=== PATIENT | female | born 1935 ===

== ENCOUNTER 2017-02-13 04:59 | Emergency (ER) | payer MEDICARE ==
[2017-02-13 05:00] VITALS: BMI 21.5
[2017-02-13 05:16] VITALS: RESP 16
--- NOTE | 2017-02-13 05:44 | C.PDOC ---
History Of Present Illness Pt c/o productive cough., Pt is on zithromax. No f/c/n/v. Speaking in complete sentences Time Seen by Provider: 02/13/17 05:43 Chief Complaint (Nursing): Cough, Cold, Congestion History Per: Patient, Family History/Exam Limitations: no limitations Onset/Duration Of Symptoms: Days Current Symptoms Are (Timing): Still Present Initiating Event: Upper Respiratory Illness Quality: Dull Exacerbating Factor(s): Coughing Current Respiratory Medications: See Home Med List Severity: Moderate Pain Scale Rating Of: 4 Associated Symptoms: denies: Fever, Chills Reports Recently: Seen In ED, Treated By A Physician Recent travel outside of the [place]: No Additional History Per: Family Past Medical History Reviewed: Historical Data, Nursing Documentation, Vital Signs Vital Signs: Last Vital Signs Temp 97.5 F L 02/13/17 05:13 Pulse 66 02/13/17 05:13 Resp 16 02/13/17 05:13 BP 160/63 H 02/13/17 05:13 Pulse Ox 97 02/13/17 06:15 - Medical History PMH: Diabetes, HTN, Hypercholesterolemia, Hypothyroidism Denies: Chronic Kidney Disease Surgical History: Cholecystectomy - [facility] Procedures DILATE OF L COM ILIAC VEIN WITH INTRALUM DEV, PERC APPROACH (08/03/16) DILATION OF L FEMOR VEIN WITH INTRALUM DEV, PERC APPROACH (08/03/16) EXTIRPATION OF MATTER FROM L COM ILIAC VEIN, PERC APPROACH (08/03/16) EXTIRPATION OF MATTER FROM LEFT FEMORAL VEIN, PERC APPROACH (08/03/16) NASAL LACERATION SUTURE (06/05/14) TETANUS TOXOID ADMINIST (06/05/14) Family History: States: No Known Family Hx - Social History Hx Tobacco Use: No Hx Alcohol Use: No Hx Substance Use: No - Immunization History Hx Tetanus Toxoid Vaccination: Yes Hx Influenza Vaccination: Yes Hx Pneumococcal Vaccination: Yes Review Of Systems Constitutional: Negative for: Fever, Chills Eyes: Negative for: Redness ENT: Negative for: Throat Pain Cardiovascular: Negative for: Chest Pain, Palpitations Respiratory: Positive for: Cough, Shortness of Breath Gastrointestinal: Negative for: Nausea, Vomiting, Abdominal Pain Genitourinary: Negative for: Dysuria Musculoskeletal: Negative for: Back Pain Skin: Negative for: Rash Neurological: Negative for: Weakness Psych: Negative for: Anxiety Physical Exam - Physical Exam Appears: Non-toxic, No Acute Distress Skin: Warm, Dry Head: Atraumatic Eye(s): bilateral: Normal Inspection Oral Mucosa: Moist Neck: Supple Chest: Symmetrical Cardiovascular: Rhythm Regular Respiratory: Decreased Breath Sounds, No Rales, Rhonchi, No Wheezing Gastrointestinal/Abdominal: Soft, No Tenderness, No Distention Back: No CVA Tenderness Extremity: Normal ROM Extremity: Bilateral: Atraumatic Neurological/Psych: Oriented x3, Normal Speech, Normal Cognition Gait: Steady ED Course And Treatment - Laboratory Results Result Diagrams: 02/13/17 06:26 02/13/17 06:26 O2 Sat by Pulse Oximetry: 97 Pulse Ox Interpretation: Normal - Radiology CXR: Interpreted by Me, Viewed By Me CXR Interpretation: No: Infiltrates, Fracture, Pnemothorax Reevaluation Time: 06:50 Reassessment Condition: Improved Disposition Counseled Patient/Family Regarding: Studies Performed, Diagnosis, Need For Followup, Rx Given - Disposition Referrals: Mg Catalan MD [Staff Provider] - Disposition: HOME/ ROUTINE Disposition Time: 05:44 Condition: FAIR Prescriptions: Albuterol 0.083% [Albuterol Sulfate 3 Ml] 3 ml IH QID PRN #50 neb PRN Reason: cough Instructions: Upper Respiratory Infection (ED) Forms: [facility] (Croatian) Print Language: VIETNAMESE - Clinical Impression Clinical Impression: Upper respiratory infection, Bronchitis, Bronchitis Physician Patient Turnover Patient Signed Over To: Jessie Tong Handoff Comments: pending labs and dispo
[2017-02-13] MEDS: Albuterol-Ipratrop 3 mg / 0.5 (3 ml) UD IH SCH ×2 (06:00→06:38)
[2017-02-13 06:29] LABS: BASO % 0.8 % (0.0-2.0); EOS # 0.1 K/uL (0.0-0.7); HEMOGLOBIN 11.5 g/dL (11.0-16.0); LYMPH # 1.1 K/uL (1.0-4.3); LYMPH % 19.4 % (20.0-40.0); MEAN CELL VOLUME 93.2 fL (81.0-99.0); MEAN CORPUSCULAR HGB CONC 34.4 g/dL (33.0-37.0); MEAN PLATELET VOLUME 8.7 fL (7.2-11.7); MONO # 0.4 K/uL (0.0-0.8); MONO % 7.2 % (0.0-10.0); NEUT # 3.9 K/uL (1.8-7.0); NEUT % 71.6 % (50.0-75.0); RBC 3.6 Mil/uL (3.80-5.20); RED CELL DISTRIBUTION WIDTH 13.3 % (11.5-14.5); WHITE BLOOD COUNT 5.5 K/uL (4.8-10.8)
[2017-02-13 06:32] LABS: URINE BILIRUBIN NEGATIVE (NEGATIVE); URINE BLOOD NEGATIVE (NEGATIVE); URINE CLARITY Clear (Clear); URINE COLOR Straw (YELLOW); URINE GLUCOSE (UA) NORMAL (Normal); URINE LEUKOCYTE ESTERASE NEG Leu/uL (Negative); URINE NITRATE NEGATIVE (NEGATIVE); URINE PROTEIN 1+ mg/dL (NEGATIVE); URINE UROBILINOGEN NORMAL mg/dL (0.2-1.0)
[2017-02-13] MEDS ORDERED: Albuterol-Ipratrop 3 mg / 0.5 (3 ml) UD ONE (06:33)
[2017-02-13 06:37] LABS: ALBUMIN 4.4 g/dL (3.5-5.0)
[2017-02-13 06:40] LABS: ALB/GLOB RATIO 1.4 (1.0-2.1)
[2017-02-13 06:44] LABS: VENOUS BLOOD GAS BASE EXCESS 2.2 mmol/L (0.0-2.0); VENOUS BLOOD GAS PCO2 49 mmHg (40-60); VENOUS BLOOD GAS PO2 22 mm/Hg (30-55); VENOUS BLOOD PH 7.37 (7.32-7.43)
[2017-02-13 07:07] VITALS: BP 151/57; PULSE 69; TEMP 98; O2SAT 99
--- NOTE | 2017-02-13 09:23 | RAD ---
HISTORY: r/o infiltrate COMPARISON: No prior. TECHNIQUE: Chest PA and lateral FINDINGS: LUNGS: No active pulmonary disease. PLEURA: No significant pleural effusion identified. No pneumothorax apparent. CARDIOVASCULAR: Normal. OSSEOUS STRUCTURES: No significant abnormalities. VISUALIZED UPPER ABDOMEN: Normal. OTHER FINDINGS: None. IMPRESSION: No active disease.
== END 2017-02-13 07:05 | disposition home or self-care (01) ==
LOC: C.ER 04:59
DX: J06.9 Acute upper respiratory infection, unspecified (principal); J40 Bronchitis, not specified as acute or chronic

== ENCOUNTER 2017-04-28 18:26 | Emergency (ER) | payer MEDICARE ==
[2017-04-28 18:26] VITALS: BMI 21.5
[2017-04-28 18:39] VITALS: RESP 18; TEMP 97.9
--- NOTE | 2017-04-28 19:51 | C.PDOC ---
History Of Present Illness 81 yr old female presents to the ER for evaluation of left knee contusion/ swelling gradually developing for the past 4 days. Patient reports sustained mechanical fall and landed on her left knee. Patient admits, was ambulatory since accident and denies head injury, LOC, syncope, dizziness, neck pain, CP, SOB, dyspnea, diaphoresis, palpitation, denies obvious deformity to Left knee, weakness, sensory or vascular deficits to B/L LEs. Ambulate to ED for evaluation , not in any apparent distress. Time Seen by Provider: 04/28/17 18:41 Chief Complaint (Nursing): Lower Extremity Problem/Injury History Per: Patient History/Exam Limitations: no limitations Onset/Duration Of Symptoms: Gradual Past Medical History Reviewed: Historical Data, Nursing Documentation, Vital Signs Vital Signs: Last Vital Signs Temp 97.9 F 04/28/17 18:36 Pulse 65 04/28/17 20:29 Resp 18 04/28/17 20:29 BP 156/92 H 04/28/17 20:29 Pulse Ox 97 04/28/17 20:29 - Medical History PMH: Diabetes, HTN, Hypercholesterolemia, Hypothyroidism Surgical History: Cholecystectomy - [facility] Procedures DILATE OF L COM ILIAC VEIN WITH INTRALUM DEV, PERC APPROACH (08/03/16) DILATION OF L FEMOR VEIN WITH INTRALUM DEV, PERC APPROACH (08/03/16) EXTIRPATION OF MATTER FROM L COM ILIAC VEIN, PERC APPROACH (08/03/16) EXTIRPATION OF MATTER FROM LEFT FEMORAL VEIN, PERC APPROACH (08/03/16) NASAL LACERATION SUTURE (06/05/14) TETANUS TOXOID ADMINIST (06/05/14) Family History: States: No Known Family Hx - Social History Hx Tobacco Use: No Hx Alcohol Use: No Hx Substance Use: No - Immunization History Hx Tetanus Toxoid Vaccination: Yes Hx Influenza Vaccination: Yes Hx Pneumococcal Vaccination: Yes Review Of Systems Except As Marked, All Systems Reviewed And Found Negative. Musculoskeletal: Positive for: Other ((+) Left knee contusion and swelling). Negative for: Leg Pain, Foot Pain Neurological: Negative for: Weakness, Numbness Physical Exam - Physical Exam Appears: Non-toxic, No Acute Distress Skin: Warm, Dry Head: Atraumatic, Normacephalic Neck: Trachea Midline, No Midline Cervical Tenderness, No Paracervical Tenderness, No Step Off Deformity, Supple Chest: Symmetrical, No Tenderness Back: No Normal Inspection, No Vertebral Tenderness, No Paraspinal Tenderness Extremity: Normal ROM, Tenderness, No Calf Tenderness, No Deformity, Other ( Left Knee: Small hematoma over the left patella with superficial abrasion. FAROM , no neurovascular deficits.) Pulses: Left Dorsalis Pedis: Normal, Right Dorsalis Pedis: Normal Neurological/Psych: Oriented x3, Normal Speech, Normal Motor, Normal Sensation, Normal Reflexes ED Course And Treatment O2 Sat by Pulse Oximetry: 99 (RA) Pulse Ox Interpretation: Normal - Other Rad X-Ray - Left Knee X-Ray: Viewed By Me, Read By Radiologist Interpretation: (+) DJD, NO ACUTE FX OR DISLOCATION Progress Note: On re-evaluation, pt is afebrile, hemodynamicaly stable. Non- toxic. Ambulatory in ED with stable gait. Left knee: (+) exam c/w small hematoma. FAROM, no neurovascula deficits. xray review and appears without acute abnormalities. Yaw wrap applied to knee. Pt advised, ref. to F/u with orth on 2-3 days for re-eavl. return to ED if any worsening or new changes. Medical Decision Making Medical Decision Making: PLAN: * X-Ray - Left Knee Disposition Counseled Patient/Family Regarding: Diagnosis, Need For Followup - Disposition Referrals: Mg Catalan MD [Staff Provider] - Theresa Moreno MD [Staff Provider] - Disposition: HOME/ ROUTINE Disposition Time: 19:30 Condition: STABLE Additional Instructions: YAW WRAP TO KNEE RICE-REST, ICE, COMPRESSION, ELEVATION TYLENOL NEED FOR APIN FOLLOW UP WITH PMD AND ORTHO IN 2-3 DAYS FOR RE-EVALUATION. RETURN TO ED IF ANY WORSENING OR NEW CHANGES. Instructions: Knee Sprain (ED) Forms: [email or web address] (Libyan) - Clinical Impression Clinical Impression: Arthritis, Knee contusion - PA / DELIVERY ROOM CLERK / Resident Statement MD/DO has reviewed & agrees with the documentation as recorded. - Scribe Statement The provider has reviewed the documentation as recorded by the Scribe Dena Trent All medical record entries made by the Scribe were at my direction and personally dictated by me. I have reviewed the chart and agree that the record accurately reflects my personal performance of the history, physical exam, medical decision making, and the department course for this patient. I have also personally directed, reviewed, and agree with the discharge instructions and disposition.
[2017-04-28 20:30] VITALS: BP 156/92; PULSE 65
[2017-04-28 21:52] VITALS: O2SAT 99
--- NOTE | 2017-04-29 09:17 | RAD ---
PROCEDURE: Left Knee Radiographs. HISTORY: Pain. COMPARISON: None. FINDINGS: BONES: No evidence of acute fracture. JOINTS: [id number] osteoarthritis. JOINT EFFUSION: None. OTHER FINDINGS: None. IMPRESSION: No evidence of acute fracture or dislocation. [id number] osteoarthritis
== END 2017-04-28 20:31 | disposition home or self-care (01) ==
LOC: C.ER 18:26
DX: S80.02XA Contusion of left knee, initial encounter (principal); W01.0XXA Fall on same level from slipping, tripping and stumbling without subsequent striking against object, initial encounter; Y93.9 Activity, unspecified; Y92.9 Unspecified place or not applicable; M13.862 Other specified arthritis, left knee

== ENCOUNTER 2017-11-29 12:47 | Emergency (ER) | payer MEDICARE ==
[2017-11-29 13:02] VITALS: BMI 19.9
[2017-11-29 13:03] VITALS: TEMP 98.4
[2017-11-29] MEDS ORDERED: Sodium Chloride 0.9% 500 ML IV ONE (13:30)
[2017-11-29 13:55] LABS: BASO % 0.4 % (0.0-2.0); EOS % 0.8 % (0.0-4.0); HEMOGLOBIN 10.6 g/dL (11.0-16.0); LYMPH # 1.4 K/uL (1.0-4.3); LYMPH % 27.2 % (20.0-40.0); MEAN CELL VOLUME 93.6 fL (81.0-99.0); MEAN CORPUSCULAR HEMOGLOBIN 31.4 pg (27.0-31.0); MEAN CORPUSCULAR HGB CONC 33.6 g/dL (33.0-37.0); MEAN PLATELET VOLUME 9.7 fL (7.2-11.7); MONO # 0.6 K/uL (0.0-0.8); MONO % 12.4 % (0.0-10.0); NEUT # 3.1 K/uL (1.8-7.0); NEUT % 59.2 % (50.0-75.0); NRBC % 0.1 % (0.0-2.0); RBC 3.37 Mil/uL (3.80-5.20); RED CELL DISTRIBUTION WIDTH 13.6 % (11.5-14.5); WHITE BLOOD COUNT 5.2 K/uL (4.8-10.8)
[2017-11-29 14:09] LABS: ALB/GLOB RATIO 1.2 (1.0-2.1); ALBUMIN 3.4 g/dL (3.5-5.0); CALCIUM 8.1 mg/dl (8.6-10.4)
[2017-11-29 14:12] LABS: SQUAMOUS EPITHIAL 1 /hpf (0-5); URINE BILIRUBIN NEGATIVE (NEGATIVE); URINE BLOOD NEGATIVE (NEGATIVE); URINE CLARITY Clear (Clear); URINE COLOR Yellow (YELLOW); URINE GLUCOSE (UA) NORMAL (Normal); URINE LEUKOCYTE ESTERASE NEG Leu/uL (Negative); URINE PROTEIN NEGATIVE (NEGATIVE); URINE UROBILINOGEN NORMAL mg/dL (0.2-1.0)
--- NOTE | 2017-11-29 14:49 | C.PDOC ---
History Of Present Illness 82-year-old female, presents to the emergency department with complaints of generalized abdominal pain and decreased appetite, that is associated with nausea, non-bloody/non-bilious vomiting and watery/non-bloody diarrhea. Pt was seen by doctor and given Zofran, Bentyl and Prilosec after which symptoms resolved, but generalized weakness and decreased appetite persisted, prompting visit. Denies fever, chest pain, shortness of breath, numbness/weakness, rash or recent travel. No other complaints at this time. Time Seen by Provider: 11/29/17 13:04 Chief Complaint (Nursing): Abdominal Pain History Per: Patient History/Exam Limitations: no limitations Current Symptoms Are (Timing): Still Present Severity: Moderate Past Medical History Reviewed: Historical Data, Nursing Documentation, Vital Signs Vital Signs: Last Vital Signs Temp 98.4 F 11/29/17 13:03 Pulse 50 L 11/29/17 15:01 Resp 18 11/29/17 15:01 BP 148/57 L 11/29/17 15:01 Pulse Ox 97 11/29/17 15:01 - Medical History PMH: Diabetes, HTN, Hypercholesterolemia, Hypothyroidism Denies: Chronic Kidney Disease Surgical History: Cholecystectomy - [facility] Procedures DILATE OF L COM ILIAC VEIN WITH INTRALUM DEV, PERC APPROACH (08/03/16) DILATION OF L FEMOR VEIN WITH INTRALUM DEV, PERC APPROACH (08/03/16) EXTIRPATION OF MATTER FROM L COM ILIAC VEIN, PERC APPROACH (08/03/16) EXTIRPATION OF MATTER FROM LEFT FEMORAL VEIN, PERC APPROACH (08/03/16) NASAL LACERATION SUTURE (06/05/14) TETANUS TOXOID ADMINIST (06/05/14) Family History: States: No Known Family Hx - Social History Hx Tobacco Use: No Hx Alcohol Use: No Hx Substance Use: No - Immunization History Hx Tetanus Toxoid Vaccination: Yes Hx Influenza Vaccination: Yes Hx Pneumococcal Vaccination: Yes Review Of Systems Constitutional: Positive for: Weakness. Negative for: Fever, Chills Cardiovascular: Negative for: Chest Pain, Palpitations Respiratory: Negative for: Shortness of Breath Gastrointestinal: Positive for: Nausea, Vomiting, Abdominal Pain, Diarrhea Musculoskeletal: Negative for: Back Pain Neurological: Negative for: Weakness, Numbness, Headache, Dizziness Physical Exam - Physical Exam Appears: Non-toxic, No Acute Distress, Other (Dehydrated) Skin: Normal Color, Warm, Dry, No Rash Head: Normacephalic Eye(s): bilateral: PERRL Nose: Normal Oral Mucosa: Moist Lips: Normal Appearing Neck: Normal ROM Cardiovascular: Rhythm Regular, No Murmur Respiratory: Normal Breath Sounds, No Accessory Muscle Use Gastrointestinal/Abdominal: Soft, No Tenderness, No Guarding, No Rebound Extremity: Normal ROM, No Deformity, No Swelling Neurological/Psych: Oriented x3, Normal Speech ED Course And Treatment - Laboratory Results Result Diagrams: 11/29/17 13:50 11/29/17 13:50 O2 Sat by Pulse Oximetry: 98 (RA) Pulse Ox Interpretation: Normal Progress Note: Bloodwork and UA ordered and reviewed. Patient treated with IVFs. Reassessment Condition: Improved (Pt appears comfortable, and states she feels much better. On exam, abdomen is soft and non-tender. She was instructed to f/u outpatient with PMD/clinic in 1-2 days. Understands to return if symptoms persist or worsen.) Disposition Counseled Patient/Family Regarding: Studies Performed, Diagnosis, Need For Followup - Disposition Referrals: Mg Catalan MD [Staff Provider] - Disposition: HOME/ ROUTINE Disposition Time: 14:45 Condition: STABLE Additional Instructions: DRINK PLENTY OF CLEAR FLUIDS USE MEDICATION NEEDED RETURN TO EMERGENCY ROOM IF SYMPTOMS WORSEN LB[place] UN MONTN DE FLUIDOS SHERRIE USE MEDICAMENTOS SEGN SEA NECESARIO REGRESE AL SUSAN DE EMERGENCIA SI LOS SNTOMAS EMPEORAN Instructions: Dehydration, Adult (DC) Forms: [facility] (Malian) Print Language: UPPER SORBIAN - POA Present On Arrival: None - Clinical Impression Clinical Impression: Nausea, Vomiting, Diarrhea - Scribe Statement The provider has reviewed the documentation as recorded by the Scribe (Ava Moreno) All medical record entries made by the Scribe were at my direction and personally dictated by me. I have reviewed the chart and agree that the record accurately reflects my personal performance of the history, physical exam, medical decision making, and the department course for this patient. I have also personally directed, reviewed, and agree with the discharge instructions and disposition.
[2017-11-29 15:02] VITALS: BP 148/57; PULSE 50; RESP 18
[2017-11-29 19:54] VITALS: O2SAT 98
== END 2017-11-29 15:02 | disposition home or self-care (01) ==
LOC: C.ER 12:47
DX: R11.2 Nausea with vomiting, unspecified (principal); R19.7 Diarrhea, unspecified; I10 Essential (primary) hypertension; E78.00 Pure hypercholesterolemia, unspecified; E11.9 Type 2 diabetes mellitus without complications
CPT/HCPCS: 80053; 81001; 83690; 85025; 99284; J7040

== ENCOUNTER 2017-12-13 16:07 | Inpatient (IN) | payer MEDICARE ==
[2017-12-13 16:07] VITALS: BMI 19.9
--- NOTE | 2017-12-13 17:03 | C.PDOC ---
History Of Present Illness Patient is an 82 y/o female who presents to the ED by referral of Dr Reeves for evaluation of slow heart rate. Patient reports to have experienced an episode of palpitations a few weeks ago and subsequently saw her consumer affairs specialist and PMD. Her blood pressure medications were adjusted and patient was referred to Dr Reeves who ordered Holter monitor. She followed up today and was referred to Ed with a report of an extremely slow heart rate. Patient c/o generalized weakness but denies any dizziness, lightheadedness, chest pain, palpitations, irregular heart, swelling in legs, or any other symptoms. Time Seen by Provider: 12/13/17 16:36 Chief Complaint (Nursing): Palpitations History Per: Patient History/Exam Limitations: no limitations Onset/Duration Of Symptoms: Days Current Symptoms Are (Timing): Gone Quality Of Symptoms: Asymptomatic Exacerbating Factor(s): Pos: None Recent travel outside of the [place]: No Past Medical History Reviewed: Historical Data, Nursing Documentation, Vital Signs Vital Signs: Last Vital Signs Temp 97.4 F L 12/13/17 16:11 Pulse 44 L 12/13/17 17:00 Resp 15 12/13/17 16:11 BP 146/44 L 12/13/17 17:00 Pulse Ox 98 12/13/17 17:33 - Medical History PMH: Cardia Arrhythmia, Diabetes, HTN, Hypercholesterolemia, Hypothyroidism Denies: Chronic Kidney Disease Surgical History: Cholecystectomy - [facility] Procedures DILATE OF L COM ILIAC VEIN WITH INTRALUM DEV, PERC APPROACH (08/03/16) DILATION OF L FEMOR VEIN WITH INTRALUM DEV, PERC APPROACH (08/03/16) EXTIRPATION OF MATTER FROM L COM ILIAC VEIN, PERC APPROACH (08/03/16) EXTIRPATION OF MATTER FROM LEFT FEMORAL VEIN, PERC APPROACH (08/03/16) NASAL LACERATION SUTURE (06/05/14) TETANUS TOXOID ADMINIST (06/05/14) Family History: States: No Known Family Hx - Social History Hx Tobacco Use: No Hx Alcohol Use: No Hx Substance Use: No - Immunization History Hx Tetanus Toxoid Vaccination: Yes Hx Influenza Vaccination: Yes Hx Pneumococcal Vaccination: Yes Review Of Systems Cardiovascular: Positive for: Palpitations (resolved), Other (bradycardia). Negative for: Chest Pain, Edema, Light Headedness Neurological: Negative for: Dizziness Physical Exam - Physical Exam Appears: Non-toxic, No Acute Distress Skin: Normal Color, Warm, Dry Head: Atraumatic, Normacephalic Oral Mucosa: Moist Chest: Symmetrical Cardiovascular: Rhythm Regular (rate 40 bpm) Respiratory: Normal Breath Sounds, No Rales, No Rhonchi, No Wheezing Gastrointestinal/Abdominal: Soft, No Tenderness Extremity: No Pedal Edema, No Swelling (negative peripheral edema) Neurological/Psych: Oriented x3, Normal Speech, Normal Cognition ED Course And Treatment - Laboratory Results Result Diagrams: 12/13/17 17:03 12/13/17 17:03 Lab Interpretation: No Acute Changes ECG: Interpreted By Me ECG Rhythm: Sinus Bradycardia (with LVH) ECG Interpretation: No Acute Changes O2 Sat by Pulse Oximetry: 98 Pulse Ox Interpretation: Normal - Radiology CXR: Interpreted by Me CXR Interpretation: Yes: No Acute Disease Progress Note: Blood work, EKG, and CXR ordered. - Physician Consult Information Time Consulting Physician Contacted: 17:32 Physician Contacted: Robert Reeves Outcome Of Conversation: Patient to be admitted for cardiac cath and placement of permanent pacemaker. Dr Hahn will accept patient on his service. Disposition - Disposition Disposition: HOSPITALIZED Disposition Time: 19:15 Condition: STABLE - POA Present On Arrival: None - Clinical Impression Clinical Impression: Ventricular arrhythmia, Symptomatic bradycardia - Scribe Statement The provider has reviewed the documentation as recorded by the Scribe Rena Borrero All medical record entries made by the Scribe were at my direction and personally dictated by me. I have reviewed the chart and agree that the record accurately reflects my personal performance of the history, physical exam, medical decision making, and the department course for this patient. I have also personally directed, reviewed, and agree with the discharge instructions and disposition.
[2017-12-13 17:10] LABS: BASO # 0.1 K/uL (0.0-0.2); EOS # 0.1 K/uL (0.0-0.7); EOS % 1.3 % (0.0-4.0); HEMOGLOBIN 10.9 g/dL (11.0-16.0); LYMPH # 1.6 K/uL (1.0-4.3); MEAN CELL VOLUME 92.7 fL (81.0-99.0); MEAN CORPUSCULAR HEMOGLOBIN 31.4 pg (27.0-31.0); MEAN CORPUSCULAR HGB CONC 33.8 g/dL (33.0-37.0); MEAN PLATELET VOLUME 8.5 fL (7.2-11.7); MONO # 0.7 K/uL (0.0-0.8); MONO % 9.9 % (0.0-10.0); NEUT # 4.5 K/uL (1.8-7.0); NEUT % 64.8 % (50.0-75.0); NRBC % 0.1 % (0.0-2.0); RBC 3.46 Mil/uL (3.80-5.20); RED CELL DISTRIBUTION WIDTH 13.6 % (11.5-14.5)
[2017-12-13 17:34] LABS: ALB/GLOB RATIO 1.3 (1.0-2.1); ALBUMIN 4.1 g/dL (3.5-5.0); ALT/SGPT 20 U/L (9-52); AST/SGOT 27 U/L (14-36); BLOOD UREA NITROGEN 31 mg/dL (7-17); CALCIUM 8.9 mg/dl (8.6-10.4); GFR AFRICAN-AMERICAN 40; GFR NON-AFRICAN AMERICAN 33
[2017-12-13 17:41] LABS: B-TYPE NATRIURETIC PEPTIDE 1280 pg/mL (0-900)
--- NOTE | 2017-12-13 18:22 | RAD ---
PROCEDURE: CHEST RADIOGRAPH, 1 VIEW HISTORY: Palpations COMPARISON: 02/13/2017 FINDINGS: LUNGS: Clear. PLEURA: No pneumothorax or pleural fluid seen. CARDIOVASCULAR: No radiographic findings to suggest acute or significant cardiovascular disease. OSSEOUS STRUCTURES: No significant abnormalities. VISUALIZED UPPER ABDOMEN: Normal. OTHER FINDINGS: None. IMPRESSION: No active disease. No acute/significant interval changes.
--- NOTE | 2017-12-13 21:11 | CP.PCM.HP ---
History of Present Illness - History of Present Illness History of Present Illness: Chief complaint: Weakness HPI: 82-year-old female with a history of hypertension, diabetes, renal insufficiency , hypothyroidism, history of left lower extremity DVT in February 2016 came to the emergency room because of not feeling well. Patient was having some increasing weakness, she was having some difficulty in moving around compared to in the past. Patient went to see the sr. merchandise planner, she underwent a multiple extensive workup , including Holter monitoring. Which was reviewed, evaluated today by Dr. Reeves, which was showing evidence of severe bradycardia, with a rate of 30s, following that patient was called today and go to the hospital emergency room. Patient did not have any much symptoms. But had only main symptoms is weakness, occasional palpitation, she did not have any dizziness. She did not have any chest pain. Some leg swelling noted. No urinary problem. Past medical history: Diabetes hypertension, hypercholesteremia, renal insufficiency, DVT. Surgical history: Total hysterectomy, cholecystectomy, thrombolysis to the left leg DVT, currently on anticoagulation Family history: Sr. had a history of stroke, mother had a history of diabetes Social history nonsmoker nonalcoholic lives alone Good functional capacity No known drug allergy Review of system: Reviewed Patient is having no headache, no visual symptoms, weakness and tiredness and easy fatigability noted. Bilateral leg swelling noted. History of blood clots in the legs noted. Patient had IVC filter also. On examination: Currently vital signs are stable. Mild bradycardia sinus noted. Chest good air entry bilaterally no wheezing, no rales noted. Abdomen soft. Nontender Extremities 1+ pedal edema noted bilaterally. TRANSFER AGENT alert awake oriented 3 no functional neurological deficit Patient's current labs reviewed. Creatinine level is slightly elevated. Elevated proBNP noted, chronic enzymes negative albumin 4.1 CBC showing evidence of mild anemia Chest x-ray showing evidence of no cardiomegaly. No evidence of pneumonia. Mild vascular congestion noted Assessment/recommendation: 82-year-old female with history of hypertension, diabetes, renal insufficiency, hypothyroidism, history of left leg DPS thrombosis, IVC filter, status post thrombolysis, anticoagulation admitted with increasing weakness, likely symptomatic bradycardia. Patient had evidence of severe sinus bradycardia, need further management. I spoke to the sr. merchandise planner. Patient will be getting thyroid profile. Possibly patient may need a stress test, and a permanent pacemaker. Blood pressure is noted to be in the high side. Will start the patient on antihypertensives, resume the home medication. Echocardiogram, stress test. And we will follow the patient. DVT and GI prophylaxis patient's family at bedside, spoke to them in detail. Present on Admission - Present on Admission Any Indicators Present on Admission: No History of DVT/PE: No History of Uncontrolled Diabetes: No Urinary Catheter: No Decubitus Ulcer Present: No Past Patient History - Infectious Disease Hx of Infectious Diseases: None - Past Medical History & Family History Past Medical History?: Yes - Past Social History Smoking Status: Never Smoked - CARDIAC Hx Cardia Arrhythmia: Yes Hx Hypercholesterolemia: Yes Hx Hypertension: Yes - PULMONARY Hx Respiratory Disorders: Yes Hx Respiratory Tract Infection: Yes Other/Comment: influenza - NEUROLOGICAL Hx Neurological Disorder: No - HEENT Hx HEENT Problems: No - RENAL Hx Chronic Kidney Disease: No - ENDOCRINE/METABOLIC Hx Hypothyroidism: Yes - HEMATOLOGICAL/ONCOLOGICAL Hx Blood Disorders: No - INTEGUMENTARY Hx Dermatological Problems: No - MUSCULOSKELETAL/RHEUMATOLOGICAL Hx Musculoskeletal Disorders: No Hx Falls: No - GASTROINTESTINAL Hx Gastrointestinal Disorders: No - GENITOURINARY/GYNECOLOGICAL Hx Genitourinary Disorders: No - PSYCHIATRIC Hx Substance Use: No - SURGICAL HISTORY Hx Cholecystectomy: Yes - ANESTHESIA Hx Anesthesia: Yes Hx Anesthesia Reactions: No Hx Malignant Hyperthermia: No Meds Allergies/Adverse Reactions: Allergies Allergy/AdvReac Type Severity Reaction Status Date / Time No Known Allergies Allergy Verified 11/29/17 13:01 Results - Vital Signs Recent Vital Signs: Last Vital Signs Temp 97.8 F 12/13/17 21:08 Pulse 51 L 12/13/17 21:08 Resp 18 12/13/17 21:08 BP 155/54 H 12/13/17 21:08 Pulse Ox 97 12/13/17 21:08 - Labs Result Diagrams: 12/13/17 17:03 12/13/17 17:03 Labs: Laboratory Results - last 24 hr 12/13/17 12/13/17 17:03 17:03 WBC 7.0 RBC 3.46 L Hgb 10.9 L Hct 32.1 L MCV 92.7 MCH 31.4 H MCHC 33.8 RDW 13.6 Plt Count 254 MPV 8.5 Neut % (Auto) 64.8 Lymph % (Auto) 23.0 [place] % (Auto) 9.9 Eos % (Auto) 1.3 Baso % (Auto) 1.0 Neut # (Auto) 4.5 Lymph # (Auto) 1.6 [place] # (Auto) 0.7 Eos # (Auto) 0.1 Baso # (Auto) 0.1 Sodium 134 Potassium 4.9 Chloride 100 Carbon Dioxide 22 Anion Gap 17 BUN 31 H Creatinine 1.5 H Est GFR ( Amer) 40 Est GFR (Non-Af Amer) 33 Random Glucose 125 H Calcium 8.9 Total Bilirubin 0.5 AST 27 ALT 20 Alkaline Phosphatase 67 Troponin I < 0.0120 NT-Pro-B Natriuret Pep 1280 H Total Protein 7.2 Albumin 4.1 Globulin 3.2 Albumin/Globulin Ratio 1.3
--- NOTE | 2017-12-14 05:03 | CP.PCM.CON ---
History of Present Illness - History of Present Illness History of Present Illness: 82 F with hx of Hypothyroidism and HTN admitted for symsptomatic bradycardia On Holter HR some times going down to 30s C/O weakness and dyspnea Will chech TSH. If normal likely needs a PPM Will follow Past Patient History - Infectious Disease Hx of Infectious Diseases: None - Past Medical History & Family History Past Medical History?: Yes - Past Social History Smoking Status: Never Smoked - CARDIAC Hx Cardia Arrhythmia: Yes Hx Hypercholesterolemia: Yes Hx Hypertension: Yes - PULMONARY Hx Respiratory Disorders: Yes Hx Respiratory Tract Infection: Yes Other/Comment: influenza - NEUROLOGICAL Hx Neurological Disorder: No - HEENT Hx HEENT Problems: No - RENAL Hx Chronic Kidney Disease: No - ENDOCRINE/METABOLIC Hx Hypothyroidism: Yes - HEMATOLOGICAL/ONCOLOGICAL Hx Blood Disorders: No - INTEGUMENTARY Hx Dermatological Problems: No - MUSCULOSKELETAL/RHEUMATOLOGICAL Hx Musculoskeletal Disorders: No Hx Falls: No - GASTROINTESTINAL Hx Gastrointestinal Disorders: No - GENITOURINARY/GYNECOLOGICAL Hx Genitourinary Disorders: No - PSYCHIATRIC Hx Substance Use: No - SURGICAL HISTORY Hx Cholecystectomy: Yes - ANESTHESIA Hx Anesthesia: Yes Hx Anesthesia Reactions: No Hx Malignant Hyperthermia: No Meds Allergies/Adverse Reactions: Allergies Allergy/AdvReac Type Severity Reaction Status Date / Time No Known Allergies Allergy Verified 11/29/17 13:01 - Medications Medications: Current Medications Apixaban (Eliquis) 2.5 mg PO BID [facility] Dicyclomine HCl (Bentyl) 10 mg PO Q6H PRN PRN Reason: Diarrhea Hydralazine HCl (Apresoline) 25 mg PO TID [facility] Levothyroxine Sodium (Synthroid) 25 mcg PO DAILY@0630 [facility] Losartan Potassium (Cozaar) 25 mg PO DAILY [facility] Pantoprazole Sodium (Protonix Ec Tab) 40 mg PO DAILY [facility] Rosuvastatin Calcium (Crestor) 5 mg PO HS [facility] Last Admin: 12/13/17 21:21 Dose: 5 mg Results - Vital Signs Recent Vital Signs: Last Vital Signs Temp 98.1 F 12/13/17 23:45 Pulse 42 L 12/14/17 01:00 Resp 20 12/13/17 23:45 BP 129/59 L 12/13/17 23:45 Pulse Ox 95 12/13/17 23:45 - Labs Result Diagrams: 12/13/17 17:03 12/13/17 17:03 Labs: Laboratory Results - last 24 hr 12/13/17 12/13/17 12/13/17 17:03 17:03 21:44 WBC 7.0 RBC 3.46 L Hgb 10.9 L Hct 32.1 L MCV 92.7 MCH 31.4 H MCHC 33.8 RDW 13.6 Plt Count 254 MPV 8.5 Neut % (Auto) 64.8 Lymph % (Auto) 23.0 Christian % (Auto) 9.9 Eos % (Auto) 1.3 Baso % (Auto) 1.0 Neut # (Auto) 4.5 Lymph # (Auto) 1.6 Christian # (Auto) 0.7 Eos # (Auto) 0.1 Baso # (Auto) 0.1 Sodium 134 Potassium 4.9 Chloride 100 Carbon Dioxide 22 Anion Gap 17 BUN 31 H Creatinine 1.5 H Est GFR ( Amer) 40 Est GFR (Non-Af Amer) 33 POC Glucose (mg/dL) 108 Random Glucose 125 H Calcium 8.9 Total Bilirubin 0.5 AST 27 ALT 20 Alkaline Phosphatase 67 Troponin I < 0.0120 NT-Pro-B Natriuret Pep 1280 H Total Protein 7.2 Albumin 4.1 Globulin 3.2 Albumin/Globulin Ratio 1.3
[2017-12-14] MEDS: Levothyroxine 25 MCG TAB PO SCH (05:39)
[2017-12-14 07:25] LABS: BASO % 0.9 % (0.0-2.0); EOS # 0.1 K/uL (0.0-0.7); EOS % 2.4 % (0.0-4.0); HEMOGLOBIN 10.1 g/dL (11.0-16.0); LYMPH # 1.6 K/uL (1.0-4.3); LYMPH % 30.1 % (20.0-40.0); MEAN CELL VOLUME 92.3 fL (81.0-99.0); MEAN CORPUSCULAR HEMOGLOBIN 31.3 pg (27.0-31.0); MEAN PLATELET VOLUME 9.6 fL (7.2-11.7); MONO # 0.5 K/uL (0.0-0.8); NEUT % 56.6 % (50.0-75.0); RBC 3.23 Mil/uL (3.80-5.20); RED CELL DISTRIBUTION WIDTH 13.4 % (11.5-14.5); WHITE BLOOD COUNT 5.3 K/uL (4.8-10.8)
[2017-12-14 07:38] LABS: ALB/GLOB RATIO 1.2 (1.0-2.1); ALBUMIN 3.5 g/dL (3.5-5.0); CALCIUM 8.5 mg/dl (8.6-10.4)
[2017-12-14] MEDS: Pantoprazole 40 mg EC Tab PO SCH (10:14)
--- NOTE | 2017-12-14 14:07 | CARD ---
APPROVED REPORT EXAM: Two-dimensional and M-mode echocardiogram with Doppler and color Doppler. Other Information Quality : GoodRhythm : INDICATION Bradycardia RISK FACTORS Hypertension Hyperlipidemia Diabetes 2D DIMENSIONS IVSd1.0 (0.7-1.1cm)LVDd4.1 (3.9-5.9cm) PWd1.0 (0.7-1.1cm)LVDs2.5 (2.5-4.0cm) FS (%) 39.9 %LVEF (%)71.0 (>50%) M-Mode DIMENSIONS Left Atrium (MM)3.86 (2.5-4.0cm)Aortic Root3.49 (2.2-3.7cm) Aortic Cusp Exc.2.19 (1.5-2.0cm) Mitral Valve MV E Azhxquql88.2cm/sMV A Rqttevio172.3cm/sE/A ratio0.6 TDI E/Lateral E'0.0E/Medial E'0.0 Tricuspid Valve TR Peak Ihoiwsgf018rq/sTR Peak Gr.27jvTeQSCX01hiQi LEFT VENTRICLE The left ventricle is normal size. There is normal left ventricular wall thickness. The left ventricular function is normal. The left ventricular ejection fraction is within the normal range. There is normal LV segmental wall motion. Transmitral Doppler flow pattern is Grade I-abnormal relaxation pattern. RIGHT VENTRICLE The right ventricle is normal size. There is normal right ventricular wall thickness. The right ventricular systolic function is normal. ATRIA The left atrium size is normal. The right atrium size is normal. AORTIC VALVE The aortic valve is mildly thickened. No aortic regurgitation is present. There is no aortic valvular stenosis. MITRAL VALVE The mitral valve is mildly thickened. There is no mitral valve stenosis. Mitral regurgitation is trace. TRICUSPID VALVE There is mild tricuspid regurgitation. There is mild pulmonary hypertension. GREAT VESSELS The aortic root is normal in size. PERICARDIAL EFFUSION There is no pericardial effusion. <Conclusion> The left ventricle is normal size. There is normal left ventricular wall thickness. The left ventricular function is normal. The left ventricular ejection fraction is within the normal range. There is normal LV segmental wall motion. Transmitral Doppler flow pattern is Grade I-abnormal relaxation pattern. There is mild tricuspid regurgitation. There is mild pulmonary hypertension.
--- NOTE | 2017-12-14 14:31 | CARD ---
APPROVED REPORT EKG Measurement Heart [id number] [place] 140P [id number] <Conclusion> Sinus bradycardia Left ventricular hypertrophy with repolarization abnormality Abnormal ECG
--- NOTE | 2017-12-14 18:59 | CARD ---
APPROVED REPORT Protocol: PHARMACOLOGICAL STRESS Test Type: LEXISCAN Test Indications: CHEST PAIN Medications: LIST SCAN Medical History: CHEST PAIN Target HR: 139 bpm Resting ECG: NSR W/ NS ST T CHANGES Resting Heart Rate: 59 bpm Resting Blood Pressure: 150/70mmHg submaximum (85%): 118 bpm TEST SUMMARY [id number]. INFUSIONDOSE 100:300.00.01.057/.0. [id number]. PROCEDURE Pharmacologic stress testing was performed using 0.4mg per 5ml of regadenoson given intravenously over 7-10 seconds. Reversal agent aminophyline 100 mg, given intravenously for Chest Pain. POST EXERCISE Reason for Termination: Protocol Completed Target HR: No Max HR: 57 bpm 52% of Maximum Predicted HR: 139 bpm Exercise duration: 00:30 min:sec, 0 Stage Exercise capacity: 1.0METs Max Blood Pressure: 150/70mmHg Blood Pressure response to exercise: normal resting BP - appropriate response Heart Rate response to exercise: appropriate Chest Pain: No, none Angina index: 0 Arrhythmia: No, none ST Change: Yes, 1/2 MM Deviation: 0 mm INTERPRETATION Stress EKG Conclusion: NEGATIVE LEXISCAN STRESS TEST NORMAL BP RESPONSE TO LEXISCAN NUCLEAR STUDIES TO BE READ SEPARATELY EXAM: Myocardial Perfusion STRESS/REST Imaging Protocol The imaging protocol used to acquire images was Stress Tc-99m/rest Tc-99m 1 day Stress Spect myocardial perfusion imaging was performed in supine position 40 minutes following the injection of 13.2 mCi of Tc-99 Myoview. Gated Rest Spect was performed 42 minutes after intravenous 31.8 mCi Tc-99 Myoview injection. The images were gated to evaluate regional wall motion and calculate ventricular ejection fraction.Images were reconstructed using backfilter projection method in short horizontal and verticle long axis. Spect slices were generated. RESTING DATA EDV58.92zqOI9.40L/min ESV8.00mlMyocardial Qotj154.00g Av. Heart Rate49.00bpm EF86.00% STRESS DATA EDV58.73etHG1.00L/min ESV7.00mlMyocardial Mass95.00g EF88.00% Regional WT score at stress:0.00 Regional WM score at stress:0.00 Summed WT score at stress:4.00 Av. Heart Rate59.00bpmSummed WM score at stress:0.00 LV Perf. Quant 17 Seg. SSS3.00 17 Seg. SRS2.00 17 Seg. SDS1.00 Stress Defect Extent (% LAD)1.30Rest Defect Extent (% LAD)0.00Rev. Defect Extent (% LAD)1.30 Stress Defect Extent (% LCX)27.50Rest Defect Extent (% LCX)12.50Rev. Defect Extent (% LCX)18.80 Stress Defect Extent (% RCA)0.00Rest Defect Extent (% RCA)0.00Rev. Defect Extent (% RCA)0.00 Stress Defect Extent (% KAYLYN)8.70Rest Defect Extent (% KAYLYN)3.50Rev. Defect Extent (% KAYLYN)5.20 Other Information Quality:Good IMPRESSION Normal Myocardial Perfusion exercise stress study Left Ventricle LV Function:Left ventricle systolic function is normal. The Ejection Fraction is >55%. Conclusion 1. No stress induced ischemia noted. Small fixed apical defect. Normal EF
--- NOTE | 2017-12-14 20:34 | CP.PCM.PN ---
Subjective - Date & Time of Evaluation Date of Evaluation: 12/14/17 Time of Evaluation: 15:05 - Subjective Subjective: Patient seen and evaluated Denies chest pain and dyspnea Review Of Systems Cardiovascular: Positive for: Palpitations (resolved), Other (bradycardia). Negative for: Chest Pain, Edema, Light Headedness Neurological: Negative for: Dizziness Physical Exam - Physical Exam Appears: Non-toxic, No Acute Distress Skin: Normal Color, Warm, Dry Head: Atraumatic, Normacephalic Oral Mucosa: Moist Chest: Symmetrical Cardiovascular: Rhythm Regular (rate 40 bpm) Respiratory: Normal Breath Sounds, No Rales, No Rhonchi, No Wheezing Gastrointestinal/Abdominal: Soft, No Tenderness Extremity: No Pedal Edema, No Swelling (negative peripheral edema) Neurological/Psych: Oriented x3, Normal Speech, Normal Cognition Objective - Vital Signs/Intake and Output Vital Signs (last 24 hours): Temp Pulse Resp BP Pulse Ox 98 F 70 20 137/58 L 97 12/14/17 15:00 12/14/17 15:00 12/14/17 15:00 12/14/17 15:00 12/14/17 15:00 - Medications Medications: Current Medications Apixaban (Eliquis) 2.5 mg PO BID [facility] Last Admin: 12/14/17 17:25 Dose: Not Given Dicyclomine HCl (Bentyl) 10 mg PO Q6H PRN PRN Reason: Diarrhea Hydralazine HCl (Apresoline) 25 mg PO TID [facility] Last Admin: 12/14/17 17:26 Dose: 25 mg Dextrose (Dextrose 10% In Water) 1,000 mls @ 30 mls/hr IV .Q24H [facility] Last Admin: 12/14/17 06:59 Dose: 30 mls/hr Levothyroxine Sodium (Synthroid) 25 mcg PO DAILY@0630 [facility] Last Admin: 12/14/17 05:39 Dose: 25 mcg Losartan Potassium (Cozaar) 25 mg PO DAILY [facility] Last Admin: 12/14/17 10:14 Dose: 25 mg Pantoprazole Sodium (Protonix Ec Tab) 40 mg PO DAILY [facility] Last Admin: 12/14/17 10:14 Dose: 40 mg Rosuvastatin Calcium (Crestor) 5 mg PO HS [facility] Last Admin: 12/13/17 21:21 Dose: 5 mg - Labs Labs: 12/14/17 07:13 12/14/17 07:13 Assessment and Plan - Assessment and Plan (Free Text) Assessment: 1. Symptomatic bradycardia 2. Hx of Hypothyroidism (On Syntheroid with normal TSH) 3. HTN Stress test: Normal and Normal EF Possible transfer to [place] for PPM as per family request
--- NOTE | 2017-12-14 22:27 | CP.PCM.PN ---
Subjective - Date & Time of Evaluation Date of Evaluation: 12/14/17 Time of Evaluation: 22:27 - Subjective Subjective: Patient is currently feeling better. No dizziness no chest pain. Patient's there is a monitoring showing evidence of continuation of the bradycardia mostly at nighttime. On examination: Vital signs stable. No chest good air entry bilaterally regular heart sound nontender abdomen Labs reviewed Patient had a TSH level is normal Stress test is nonspecific. Patient is scheduled to have a pacemaker tomorrow Assessment and recommendation: 82-year-old female with a history of diabetes hypertension and high cholesterol admitted with symptomatic bradycardia. For pacemaker. Continue current treatment and will follow-up the patient Objective - Vital Signs/Intake and Output Vital Signs (last 24 hours): Temp Pulse Resp BP Pulse Ox 98 F 70 20 137/58 L 97 12/14/17 15:00 12/14/17 15:00 12/14/17 15:00 12/14/17 15:00 12/14/17 15:00 Intake and Output: 12/14/17 12/15/17 18:59 06:59 Intake Total 118 Balance 118 - Medications Medications: Current Medications Apixaban (Eliquis) 2.5 mg PO BID [facility] Last Admin: 12/14/17 17:25 Dose: Not Given Dicyclomine HCl (Bentyl) 10 mg PO Q6H PRN PRN Reason: Diarrhea Hydralazine HCl (Apresoline) 25 mg PO TID [facility] Last Admin: 12/14/17 17:26 Dose: 25 mg Dextrose (Dextrose 10% In Water) 1,000 mls @ 30 mls/hr IV .Q24H [facility] Last Admin: 12/14/17 06:59 Dose: 30 mls/hr Levothyroxine Sodium (Synthroid) 25 mcg PO DAILY@0630 [facility] Last Admin: 12/14/17 05:39 Dose: 25 mcg Losartan Potassium (Cozaar) 25 mg PO DAILY [facility] Last Admin: 12/14/17 10:14 Dose: 25 mg Pantoprazole Sodium (Protonix Ec Tab) 40 mg PO DAILY [facility] Last Admin: 12/14/17 10:14 Dose: 40 mg Rosuvastatin Calcium (Crestor) 5 mg PO HS [facility] Last Admin: 12/14/17 21:11 Dose: 5 mg - Labs Labs: 12/14/17 07:13 12/14/17 07:13
[2017-12-15] MEDS: Levothyroxine 25 MCG TAB PO SCH (06:19)
[2017-12-15 07:33] LABS: INR 1.2; PROTHROMBIN TIME 13.4 SECONDS (9.7-12.2)
[2017-12-15] MEDS: Pantoprazole 40 mg EC Tab PO SCH (09:35)
--- NOTE | 2017-12-15 22:21 | CP.PCM.PN ---
Subjective - Date & Time of Evaluation Date of Evaluation: 12/15/17 Time of Evaluation: 22:21 - Subjective Subjective: Patient today underwent pacemaker placement. No problems noted. Minimal pain in the left upper extremity area noted On examination: Vital signs are stable. Chest good air entry regular heart sound nontender abdomen Assessment and recommendation: 82-year-old female with a history of diabetes hypertension high cholesterol. Status post pacemaker Stable. Possible discharge plan tomorrow Objective - Vital Signs/Intake and Output Vital Signs (last 24 hours): Temp Pulse Resp BP Pulse Ox 97.5 F L 50 L 18 116/57 L 97 12/15/17 07:05 12/15/17 07:05 12/15/17 07:05 12/15/17 07:05 12/15/17 07:05 - Medications Medications: Current Medications Apixaban (Eliquis) 2.5 mg PO BID [facility] Last Admin: 12/15/17 09:35 Dose: 2.5 mg Dicyclomine HCl (Bentyl) 10 mg PO Q6H PRN PRN Reason: Diarrhea Hydralazine HCl (Apresoline) 25 mg PO TID [facility] Last Admin: 12/15/17 14:58 Dose: Not Given Dextrose (Dextrose 10% In Water) 1,000 mls @ 30 mls/hr IV .Q24H [facility] Last Admin: 12/15/17 08:00 Dose: Not Given Levothyroxine Sodium (Synthroid) 25 mcg PO DAILY@0630 [facility] Last Admin: 12/15/17 06:19 Dose: 25 mcg Losartan Potassium (Cozaar) 25 mg PO DAILY [facility] Last Admin: 12/15/17 09:35 Dose: 25 mg Pantoprazole Sodium (Protonix Ec Tab) 40 mg PO DAILY [facility] Last Admin: 12/15/17 09:35 Dose: 40 mg Rosuvastatin Calcium (Crestor) 5 mg PO HS [facility] Last Admin: 12/14/17 21:11 Dose: 5 mg - Labs Labs: 12/14/17 07:13 12/14/17 07:13 PT 13.4 SECONDS (9.7-12.2) H 12/15/17 07:13 INR 1.2 12/15/17 07:13 APTT 34 SECONDS (21-34) 12/15/17 07:13
--- NOTE | 2017-12-16 01:48 | CP.PCM.PN ---
Subjective - Date & Time of Evaluation Date of Evaluation: 12/15/17 Time of Evaluation: 08:05 - Subjective Subjective: Patient seen and evaluated Denies chest pain and dyspnea Review Of Systems Cardiovascular: Positive for: Palpitations (resolved), Other (bradycardia). Negative for: Chest Pain, Edema, Light Headedness Neurological: Negative for: Dizziness Physical Exam - Physical Exam Appears: Non-toxic, No Acute Distress Skin: Normal Color, Warm, Dry Head: Atraumatic, Normacephalic Oral Mucosa: Moist Chest: Symmetrical Cardiovascular: Rhythm Regular (rate 40 bpm) Respiratory: Normal Breath Sounds, No Rales, No Rhonchi, No Wheezing Gastrointestinal/Abdominal: Soft, No Tenderness Extremity: No Pedal Edema, No Swelling (negative peripheral edema) Neurological/Psych: Oriented x3, Normal Speech, Normal Cognition Objective - Vital Signs/Intake and Output Vital Signs (last 24 hours): Temp Pulse Resp BP Pulse Ox 97.5 F L 50 L 18 116/57 L 97 12/15/17 07:05 12/15/17 07:05 12/15/17 07:05 12/15/17 07:05 12/15/17 07:05 - Medications Medications: Current Medications Acetaminophen (Tylenol 325mg Tab) 650 mg PO Q6 PRN PRN Reason: Pain, Mild (1-3) Apixaban (Eliquis) 2.5 mg PO BID [facility] Last Admin: 12/15/17 09:35 Dose: 2.5 mg Dicyclomine HCl (Bentyl) 10 mg PO Q6H PRN PRN Reason: Diarrhea Hydralazine HCl (Apresoline) 25 mg PO TID [facility] Last Admin: 12/15/17 14:58 Dose: Not Given Dextrose (Dextrose 10% In Water) 1,000 mls @ 30 mls/hr IV .Q24H [facility] Last Admin: 12/15/17 08:00 Dose: Not Given Levothyroxine Sodium (Synthroid) 25 mcg PO DAILY@0630 [facility] Last Admin: 12/15/17 06:19 Dose: 25 mcg Losartan Potassium (Cozaar) 25 mg PO DAILY [facility] Last Admin: 12/15/17 09:35 Dose: 25 mg Pantoprazole Sodium (Protonix Ec Tab) 40 mg PO DAILY [facility] Last Admin: 12/15/17 09:35 Dose: 40 mg Rosuvastatin Calcium (Crestor) 5 mg PO HS [facility] Last Admin: 12/15/17 23:02 Dose: 5 mg - Labs Labs: 12/14/17 07:13 12/14/17 07:13 PT 13.4 SECONDS (9.7-12.2) H 12/15/17 07:13 INR 1.2 12/15/17 07:13 APTT 34 SECONDS (21-34) 12/15/17 07:13 Assessment and Plan - Assessment and Plan (Free Text) Assessment: 1. Symptomatic bradycardia 2. Hx of Hypothyroidism (On Syntheroid with normal TSH) 3. HTN Stress test: Normal and Normal EF For PPM today
[2017-12-16] MEDS: Levothyroxine 25 MCG TAB PO SCH (06:16)
[2017-12-16] MEDS: Pantoprazole 40 mg EC Tab PO SCH (10:16)
--- NOTE | 2017-12-16 18:58 | CP.PCM.PN ---
Subjective - Date & Time of Evaluation Date of Evaluation: 12/16/17 Time of Evaluation: 18:58 - Subjective Subjective: Patient is now feeling better. No chest pain or shortness of breath noted. Able to ambulate On examination: Vital signs stable. Chest good air entry bilaterally regular heart sound nontender abdomen Assessment and recommendation: 82-year-old female with a history of diabetes hypertension and hypercholesteremia, status post a pacemaker for symptomatic bradycardia. Stable. Possible discharge plan tomorrow Objective - Vital Signs/Intake and Output Vital Signs (last 24 hours): Temp Pulse Resp BP Pulse Ox 98.5 F 60 20 110/65 98 12/16/17 16:00 12/16/17 18:00 12/16/17 16:00 12/16/17 16:00 12/16/17 16:00 - Medications Medications: Current Medications Acetaminophen (Tylenol 325mg Tab) 650 mg PO Q6 PRN PRN Reason: Pain, Mild (1-3) Apixaban (Eliquis) 2.[address] [facility] Last Admin: 12/16/17 17:04 Dose: Not Given Dicyclomine HCl (Bentyl) 10 mg PO Q6H PRN PRN Reason: Diarrhea Hydralazine HCl (Apresoline) [address] [facility] Last Admin: 12/16/17 17:02 Dose: 25 mg Levothyroxine Sodium (Synthroid) 25 mcg PO DAILY@0630 [facility] Last Admin: 12/16/17 06:16 Dose: 25 mcg Losartan Potassium (Cozaar) [address] [facility] Last Admin: 12/16/17 10:16 Dose: 25 mg Pantoprazole Sodium (Protonix Ec Tab) [address] [facility] Last Admin: 12/16/17 10:16 Dose: 40 mg Rosuvastatin Calcium (Crestor) [address] [facility] Last Admin: 12/15/17 23:02 Dose: 5 mg - Labs Labs: 12/14/17 07:13 12/14/17 07:13 PT 13.4 SECONDS (9.7-12.2) H 12/15/17 07:13 INR 1.2 12/15/17 07:13 APTT 34 SECONDS (21-34) 12/15/17 07:13
[2017-12-17] MEDS: Levothyroxine 25 MCG TAB PO SCH (05:48)
--- NOTE | 2017-12-17 08:20 | CP.PCM.PN ---
Subjective - Date & Time of Evaluation Date of Evaluation: 12/16/17 Time of Evaluation: 18:40 - Subjective Subjective: Patient s/p PPM POD # 1 Patient seen and evaluated Denies chest pain and dyspnea Review Of Systems Cardiovascular: Positive for: Palpitations (resolved), Other (bradycardia). Negative for: Chest Pain, Edema, Light Headedness Neurological: Negative for: Dizziness Physical Exam - Physical Exam Appears: Non-toxic, No Acute Distress Skin: Normal Color, Warm, Dry Head: Atraumatic, Normacephalic Oral Mucosa: Moist Chest: Symmetrical Cardiovascular: Rhythm Regular (rate 40 bpm) Respiratory: Normal Breath Sounds, No Rales, No Rhonchi, No Wheezing Gastrointestinal/Abdominal: Soft, No Tenderness Extremity: No Pedal Edema, No Swelling (negative peripheral edema) Neurological/Psych: Oriented x3, Normal Speech, Normal Cognition Objective - Vital Signs/Intake and Output Vital Signs (last 24 hours): Temp Pulse Resp BP Pulse Ox 98.5 F 60 20 122/58 L 96 12/16/17 23:40 12/17/17 07:45 12/16/17 23:40 12/16/17 23:40 12/16/17 23:40 - Medications Medications: Current Medications Acetaminophen (Tylenol 325mg Tab) 650 mg PO Q6 PRN PRN Reason: Pain, Mild (1-3) Apixaban (Eliquis) 2.5 mg PO BID [facility] Last Admin: 12/16/17 17:04 Dose: Not Given Dicyclomine HCl (Bentyl) 10 mg PO Q6H PRN PRN Reason: Diarrhea Hydralazine HCl (Apresoline) 25 mg PO TID [facility] Last Admin: 12/16/17 17:02 Dose: 25 mg Levothyroxine Sodium (Synthroid) 25 mcg PO DAILY@0630 [facility] Last Admin: 12/17/17 05:48 Dose: 25 mcg Losartan Potassium (Cozaar) 25 mg PO DAILY [facility] Last Admin: 12/16/17 10:16 Dose: 25 mg Pantoprazole Sodium (Protonix Ec Tab) 40 mg PO DAILY [facility] Last Admin: 12/16/17 10:16 Dose: 40 mg Rosuvastatin Calcium (Crestor) 5 mg PO HS [facility] Last Admin: 12/16/17 21:22 Dose: 5 mg - Labs Labs: 12/14/17 07:13 12/14/17 07:13 PT 13.4 SECONDS (9.7-12.2) H 12/15/17 07:13 INR 1.2 12/15/17 07:13 APTT 34 SECONDS (21-34) 12/15/17 07:13 Assessment and Plan - Assessment and Plan (Free Text) Assessment: 1. Symptomatic bradycardia s/p PPM 2. Hx of Hypothyroidism (On Syntheroid with normal TSH) 3. HTN Stress test: Normal and Normal EF Continue all meds. Patient can be discharged cardiac point of view I will see her in my office in 1 week
[2017-12-17] MEDS: Pantoprazole 40 mg EC Tab PO SCH (09:58)
--- NOTE | 2017-12-17 22:21 | CP.PCM.PN ---
Subjective - Date & Time of Evaluation Date of Evaluation: 12/17/17 Time of Evaluation: 07:00 - Subjective Subjective: No cardiac events noted Review Of Systems Cardiovascular: Positive for: Palpitations (resolved), Other (bradycardia). Negative for: Chest Pain, Edema, Light Headedness Neurological: Negative for: Dizziness Physical Exam - Physical Exam Appears: Non-toxic, No Acute Distress Skin: Normal Color, Warm, Dry Head: Atraumatic, Normacephalic Oral Mucosa: Moist Chest: Symmetrical Cardiovascular: Rhythm Regular (rate 40 bpm) Respiratory: Normal Breath Sounds, No Rales, No Rhonchi, No Wheezing Gastrointestinal/Abdominal: Soft, No Tenderness Extremity: No Pedal Edema, No Swelling (negative peripheral edema) Neurological/Psych: Oriented x3, Normal Speech, Normal Cognition Objective - Vital Signs/Intake and Output Vital Signs (last 24 hours): Temp Pulse Resp BP Pulse Ox 98 F 60 20 137/59 L 98 12/17/17 15:13 12/17/17 21:49 12/17/17 15:13 12/17/17 21:49 12/17/17 15:13 - Medications Medications: Current Medications Acetaminophen (Tylenol 325mg Tab) 650 mg PO Q6 PRN PRN Reason: Pain, Mild (1-3) Apixaban (Eliquis) 2.5 mg PO BID [facility] Last Admin: 12/17/17 17:28 Dose: Not Given Dicyclomine HCl (Bentyl) 10 mg PO Q6H PRN PRN Reason: Diarrhea Hydralazine HCl (Apresoline) 25 mg PO TID [facility] Last Admin: 12/17/17 21:49 Dose: 25 mg Levothyroxine Sodium (Synthroid) 25 mcg PO DAILY@0630 [facility] Last Admin: 12/17/17 05:48 Dose: 25 mcg Losartan Potassium (Cozaar) 25 mg PO DAILY [facility] Last Admin: 12/17/17 09:58 Dose: 25 mg Pantoprazole Sodium (Protonix Ec Tab) 40 mg PO DAILY [facility] Last Admin: 12/17/17 09:58 Dose: 40 mg Rosuvastatin Calcium (Crestor) 5 mg PO HS [facility] Last Admin: 12/17/17 21:49 Dose: 5 mg - Labs Labs: 12/14/17 07:13 12/14/17 07:13 PT 13.4 SECONDS (9.7-12.2) H 12/15/17 07:13 INR 1.2 12/15/17 07:13 APTT 34 SECONDS (21-34) 12/15/17 07:13 Assessment and Plan - Assessment and Plan (Free Text) Assessment: 1. Symptomatic bradycardia s/p PPM 2. Hx of Hypothyroidism (On Syntheroid with normal TSH) 3. HTN Stress test: Normal and Normal EF Continue all meds. Patient can be discharged cardiac point of view I will see her in my office in 1 week
[2017-12-18 01:12] VITALS: TEMP 98.1; O2SAT 97
[2017-12-18] MEDS: Levothyroxine 25 MCG TAB PO SCH (05:31)
[2017-12-18 07:55] VITALS: BP 130/75; PULSE 61; RESP 18
[2017-12-18] MEDS: Pantoprazole 40 mg EC Tab PO SCH (09:08)
--- NOTE | 2017-12-18 11:09 | CP.PCM.PN ---
Subjective - Date & Time of Evaluation Date of Evaluation: 12/18/17 Time of Evaluation: 11:07 - Subjective Subjective: PT SEEN BY DR. ARVIZU THIS MORNING AND CLEARED FOR D/C HOME TODAY. DAUGHTER AT BEDSIDE. PT TO F/U WITH DR. TRACY IN HIS OFFICE THIS MONDAY AT 3PM. TO F/U WITH DR. ARVIZU WITHIN 1 WEEK. NO SHOWERING UNTIL SEEN BY DR. TRACY ON MONDAY. PER PT SHE HAS ALL HOME MEDS AND VERBALIZES UNDERSTANDING REGARDING CHANGE TO HYDRALAZINE. SEE BELOW FOR D/C PLAN. NO FURTHER ORDERS. - SEGUIMIENTO CON EL DR. ARVIZU EN LA OFICINA EN 1 SEMANA --- LLAME A LA OFICINA MAANA PARA HACER KRUEGER LEAH. - SEGUIMIENTO CON EL DR. TRACY EN LA OFICINA EL VIERNES, 12/22/17 A LAS 3:00 PM -- - LLAME A LA OFICINA SI TIENE PREGUNTAS CON RESPECTO A ESTA LEAH. -CONTINUAR LOS MEDICAMENTOS CASEROS RIAN HABITUALMENTE. -TOME KRUEGER HIDRALAZINA (25 MG) 1 PLDORA POR BOCA RADHA VECES AL DA. NUEVAS INSTRUCCIONES POR DR. TRACY CUANDO LO VE EL VIERNES. -NO DUCHA HASTA QUE VEAS EL DR. TRACY EN LA OFICINA. PUEDE LIMPIAR EL TINTE NEENA EN KRUEGER DAVID CON [place] Y ALCOHOL EN JAMIA MARILYN EL SHELLEY -Para otras RDENES O PREOCUPACIONES, CONTACTO DR. FRAN LOW. -FOLLOW UP WITH DR. ARVIZU IN THE OFFICE IN 1 WEEK---CALL THE OFFICE TOMORROW TO MAKE YOUR APPOINTMENT. -FOLLOW UP WITH DR. TRACY IN THE OFFICE ON 12/22/17 AT 3:00 PM---CALL THE OFFICE IF YOU HAVE QUESTIONS REGARDING THIS APPOINTMENT. -CONTINUE HOME MEDICATIONS USUAL. -TAKE YOUR HYDRALAZINE (25 MG) 1 PILL BY MOUTH THREE TIMES A DAY. FURTHER INSTRUCTIONS PER DR. TRACY WHEN YOU SEE HIM ON MONDAY. -DO NOT SHOWER UNTIL YOU SEE DR. TRACY IN THE OFFICE. YOU MAY WIPE AWAY THE GREEN DYE ON YOUR NECK WITH WARM WATER AND ALCOHOL ON A WASH CLOTH. -FOR FURTHER ORDERS OR CONCERNS, CONTACT DR. ARVIZU'S OFFICE. Objective - Vital Signs/Intake and Output Vital Signs (last 24 hours): Temp Pulse Resp BP Pulse Ox 98.1 F 61 18 130/75 97 12/18/17 07:20 12/18/17 07:20 12/18/17 07:20 12/18/17 07:20 12/18/17 07:20 Intake and Output: 12/18/17 12/18/17 06:59 18:59 Intake Total 500 Balance 500 - Medications Medications: Current Medications Acetaminophen (Tylenol 325mg Tab) 650 mg PO Q6 PRN PRN Reason: Pain, Mild (1-3) Apixaban (Eliquis) 2.5 mg PO BID [facility] Last Admin: 12/18/17 09:08 Dose: 2.5 mg Dicyclomine HCl (Bentyl) 10 mg PO Q6H PRN PRN Reason: Diarrhea Hydralazine HCl (Apresoline) 25 mg PO TID [facility] Last Admin: 12/18/17 09:08 Dose: 25 mg Levothyroxine Sodium (Synthroid) 25 mcg PO DAILY@0630 [facility] Last Admin: 12/18/17 05:31 Dose: 25 mcg Losartan Potassium (Cozaar) 25 mg PO DAILY [facility] Last Admin: 12/18/17 09:08 Dose: 25 mg Pantoprazole Sodium (Protonix Ec Tab) 40 mg PO DAILY [facility] Last Admin: 12/18/17 09:08 Dose: 40 mg Rosuvastatin Calcium (Crestor) 5 mg PO HS [facility] Last Admin: 12/17/17 21:49 Dose: 5 mg - Labs Labs: 12/14/17 07:13 12/14/17 07:13 PT 13.4 SECONDS (9.7-12.2) H 12/15/17 07:13 INR 1.2 12/15/17 07:13 APTT 34 SECONDS (21-34) 12/15/17 07:13
--- NOTE | 2017-12-18 20:31 | CP.PCM.PN ---
Subjective - Date & Time of Evaluation Date of Evaluation: 12/17/17 Time of Evaluation: 20:31 - Subjective Subjective: Patient is now feeling better. No chest pain or shortness of breath noted. Able to ambulate On examination: Vital signs stable. Chest good air entry bilaterally regular heart sound nontender abdomen Assessment and recommendation: 82-year-old female with a history of diabetes hypertension and hypercholesteremia, status post a pacemaker for symptomatic bradycardia. Stable. Possible discharge plan tomorrow Objective - Vital Signs/Intake and Output Vital Signs (last 24 hours): Temp Pulse Resp BP Pulse Ox 98.1 F 61 18 130/75 97 12/18/17 07:20 12/18/17 07:20 12/18/17 07:20 12/18/17 07:20 12/18/17 07:20 - Labs Labs: 12/14/17 07:13 12/14/17 07:13 PT 13.4 SECONDS (9.7-12.2) H 12/15/17 07:13 INR 1.2 12/15/17 07:13 APTT 34 SECONDS (21-34) 12/15/17 07:13
--- NOTE | 2017-12-18 20:34 | CP.PCM.DIS ---
Provider - Provider Date of Admission: 12/13/17 19:16 Attending physician: Michael Arvizu MD Time Spent in preparation of Discharge (in minutes): 45 Diagnosis - Discharge Diagnosis (1) Sinus bradycardia-tachycardia syndrome Status: Acute Hospital Course - Lab Results Lab Results: Most Recent Lab Values WBC 5.3 K/uL (4.8-10.8) 12/14/17 07:13 RBC 3.23 Mil/uL (3.80-5.20) L 12/14/17 07:13 Hgb 10.1 g/dL (11.0-16.0) L 12/14/17 07:13 Hct 29.8 % (34.0-47.0) L 12/14/17 07:13 MCV 92.3 fL (81.0-99.0) 12/14/17 07:13 MCH 31.3 pg (27.0-31.0) H 12/14/17 07:13 MCHC 34.0 g/dL (33.0-37.0) 12/14/17 07:13 RDW 13.4 % (11.5-14.5) 12/14/17 07:13 Plt Count 206 K/uL (130-400) 12/14/17 07:13 MPV 9.6 fL (7.2-11.7) 12/14/17 07:13 Neut % (Auto) 56.6 % (50.0-75.0) 12/14/17 07:13 Lymph % (Auto) 30.1 % (20.0-40.0) 12/14/17 07:13 [place] % (Auto) 10.0 % (0.0-10.0) 12/14/17 07:13 Eos % (Auto) 2.4 % (0.0-4.0) 12/14/17 07:13 Baso % (Auto) 0.9 % (0.0-2.0) 12/14/17 07:13 Neut # (Auto) 3.0 K/uL (1.8-7.0) 12/14/17 07:13 Lymph # (Auto) 1.6 K/uL (1.0-4.3) 12/14/17 07:13 [place] # (Auto) 0.5 K/uL (0.0-0.8) 12/14/17 07:13 Eos # (Auto) 0.1 K/uL (0.0-0.7) 12/14/17 07:13 Baso # (Auto) 0.0 K/uL (0.0-0.2) 12/14/17 07:13 PT 13.4 SECONDS (9.7-12.2) H 12/15/17 07:13 INR 1.2 12/15/17 07:13 APTT 34 SECONDS (21-34) 12/15/17 07:13 Sodium 137 mmol/L (132-148) 12/14/17 07:13 Potassium 5.2 mmol/L (3.6-5.2) 12/14/17 07:13 Chloride 105 mmol/L (98-107) 12/14/17 07:13 Carbon Dioxide 23 mmol/L (22-30) 12/14/17 07:13 Anion Gap 15 (10-20) 12/14/17 07:13 BUN 30 mg/dL (7-17) H 12/14/17 07:13 Creatinine 1.4 mg/dL (0.7-1.2) H 12/14/17 07:13 Est GFR ( Amer) 44 12/14/17 07:13 Est GFR (Non-Af Amer) 36 12/14/17 07:13 POC Glucose (mg/dL) 97 mg/dL (65-110) 12/18/17 06:19 Random Glucose 92 mg/dL (65-105) 12/14/17 07:13 Calcium 8.5 mg/dl (8.6-10.4) L 12/14/17 07:13 Phosphorus 4.2 mg/dL (2.5-4.5) 12/14/17 07:13 Magnesium 2.1 mg/dL (1.6-2.3) 12/14/17 07:13 Total Bilirubin 0.6 mg/dL (0.2-1.3) 12/14/17 07:13 AST 24 U/L (14-36) 12/14/17 07:13 ALT 19 U/L (9-52) 12/14/17 07:13 Alkaline Phosphatase 54 U/L (38-126) 12/14/17 07:13 Troponin I < 0.0120 ng/mL (0.00-0.120) 12/13/17 17:03 NT-Pro-B Natriuret Pep 1280 pg/mL (0-900) H 12/13/17 17:03 Total Protein 6.5 g/dL (6.3-8.3) 12/14/17 07:13 Albumin 3.5 g/dL (3.5-5.0) 12/14/17 07:13 Globulin 2.9 gm/dL (2.2-3.9) 12/14/17 07:13 Albumin/Globulin Ratio 1.2 (1.0-2.1) 12/14/17 07:13 TSH 3rd Generation 4.01 mIU/L (0.46-4.68) 12/14/17 07:13 - Hospital Course Hospital Course: Chief complaint: Weakness HPI: 82-year-old female with a history of hypertension, diabetes, renal insufficiency , hypothyroidism, history of left lower extremity DVT in February 2016 came to the emergency room because of not feeling well. Patient was having some increasing weakness, she was having some difficulty in moving around compared to in the past. Patient went to see the safety leader, she underwent a multiple extensive workup , including Holter monitoring. Which was reviewed, evaluated today by Dr. Reeves, which was showing evidence of severe bradycardia, with a rate of 30s, following that patient was called today and go to the hospital emergency room. Patient did not have any much symptoms. But had only main symptoms is weakness, occasional palpitation, she did not have any dizziness. She did not have any chest pain. Some leg swelling noted. No urinary problem. Past medical history: Diabetes hypertension, hypercholesteremia, renal insufficiency, DVT. Surgical history: Total hysterectomy, cholecystectomy, thrombolysis to the left leg DVT, currently on anticoagulation Family history: Sr. had a history of stroke, mother had a history of diabetes Social history nonsmoker nonalcoholic lives alone Good functional capacity No known drug allergy Review of system: Reviewed Patient is having no headache, no visual symptoms, weakness and tiredness and easy fatigability noted. Bilateral leg swelling noted. History of blood clots in the legs noted. Patient had IVC filter also. On examination: Currently vital signs are stable. Mild bradycardia sinus noted. Chest good air entry bilaterally no wheezing, no rales noted. Abdomen soft. Nontender Extremities 1+ pedal edema noted bilaterally. [employer] SYSTEMS ADMINISTRATOR alert awake oriented 3 no functional neurological deficit Patient's current labs reviewed. Creatinine level is slightly elevated. Elevated proBNP noted, chronic enzymes negative albumin 4.1 CBC showing evidence of mild anemia Chest x-ray showing evidence of no cardiomegaly. No evidence of pneumonia. Mild vascular congestion noted Assessment/recommendation: 82-year-old female with history of hypertension, diabetes, renal insufficiency, hypothyroidism, history of left leg DPS thrombosis, IVC filter, status post thrombolysis, anticoagulation admitted with increasing weakness, likely symptomatic bradycardia. Patient had evidence of severe sinus bradycardia, need further management. I spoke to the safety leader. Patient will be getting thyroid profile. Possibly patient may need a stress test, and a permanent pacemaker. Blood pressure is noted to be in the high side. Will start the patient on antihypertensives, resume the home medication. Echocardiogram, stress test. And we will follow the patient. DVT and GI prophylaxis patient's family at bedside, spoke to them in detail. Course in the hospital: Patient was evaluated with the safety leader to be Patient had a few episodes of symptomatic bradycardia at nighttime. The heart rate was in the in 30s. Finally decided for pacemaker. Patient agreed to have a pacemaker. Patient underwent pacemaker placement at [facility]. Postoperatively patient did extremely well. She did not have any pain. No chest pain or shortness of breath. Clinically stable. She will be discharged home today. Final diagnoses: Symptomatic bradycardia, status post pacemaker placement this admission Diabetes hypertension hypercholesterolemia renal insufficiency deep venous thrombosis. Patient medications reviewed She will continue the current medications. Follow-up with her PMD, cardiology. Information was given to the patient's family Discharge Plan - Follow Up Plan Condition: STABLE Disposition: HOME/ ROUTINE Instructions: Bradycardia, Arrhythmias (DC), Pacemaker Insertion (DC), Acute Bronchitis, Bradycardia (DC), Apixaban Additional Instructions: - SEGUIMIENTO CON EL DR. ARVIZU EN LA OFICINA EN 1 SEMANA --- LLAME A LA OFICINA MAANA PARA HACER KRUEGER LEAH. - SEGUIMIENTO CON EL DR. REEVES EN LA OFICINA EL VIJEWEL, 12/22/17 A LAS 3:00 PM -- - LLAME A LA OFICINA SI TIENE PREGUNTAS CON RESPECTO A ESTA LEAH. -CONTINUAR LOS MEDICAMENTOS CASEROS RIAN HABITUALMENTE. -TOME KRUEGER HIDRALAZINA (25 MG) 1 PLDORA POR BOCA RADHA VECES AL DA. NUEVAS INSTRUCCIONES POR DR. REEVES CUANDO LO VE EL VIERNES. -NO DUCHA HASTA QUE VEAS EL DR. REEVES EN LA OFICINA. PUEDE LIMPIAR EL TINTE NEENA EN KRUEGER DAVID CON [place] Y ALCOHOL EN JAMIA MARILYN EL SHELLEY -Para otras RDENES O PREOCUPACIONES, CONTACTO DR. FRAN LOW. -FOLLOW UP WITH DR. ARVIZU IN THE OFFICE IN 1 WEEK---CALL THE OFFICE TOMORROW TO MAKE YOUR APPOINTMENT. -FOLLOW UP WITH DR. REEVES IN THE OFFICE ON 12/22/17 AT 3:00 PM---CALL THE OFFICE IF YOU HAVE QUESTIONS REGARDING THIS APPOINTMENT. -CONTINUE HOME MEDICATIONS USUAL. -TAKE YOUR HYDRALAZINE (25 MG) 1 PILL BY MOUTH THREE TIMES A DAY. FURTHER INSTRUCTIONS PER DR. REEVES WHEN YOU SEE HIM ON MONDAY. -DO NOT SHOWER UNTIL YOU SEE DR. REEVES IN THE OFFICE. YOU MAY WIPE AWAY THE GREEN DYE ON YOUR NECK WITH WARM WATER AND ALCOHOL ON A WASH CLOTH. -FOR FURTHER ORDERS OR CONCERNS, CONTACT DR. ARVIZU'S OFFICE. Referrals: Robert Reeves MD [Staff Provider] - Michael Arvizu MD [Staff Provider] -
== END 2017-12-18 12:00 | disposition home or self-care (01) | DRG 309 ==
LOC: C.ER 16:07 → C.9E 19:16 → C.6T 20:30 → UNDODISIN 12-15 14:07
PROVIDERS: ADMIT Internal Medicine; ATTEND Internal Medicine
DX: I49.5 Sick sinus syndrome (principal); I47.0 Re-entry ventricular arrhythmia; E11.9 Type 2 diabetes mellitus without complications; I10 Essential (primary) hypertension; Z86.718 Personal history of other venous thrombosis and embolism; Z86.73 Personal history of transient ischemic attack (TIA), and cerebral infarction without residual deficits; E03.9 Hypothyroidism, unspecified; E78.00 Pure hypercholesterolemia, unspecified; Z68.20 Body mass index [BMI] 20.0-20.9, adult; Z95.0 Presence of cardiac pacemaker

== ENCOUNTER 2018-05-05 11:26 | Emergency (ER) | payer MEDICARE ==
[2018-05-05 11:27] VITALS: BMI 19.9
[2018-05-05 11:34] VITALS: PULSE 60
--- NOTE | 2018-05-05 12:14 | C.PDOC ---
History Of Present Illness 82 year old female w/PMHx of NIDDM comes in for evaluation of right 4th finger pain , redness and swelling. Patient reports the pain developed over the pass x1 week. She states pain is localized and is worse with movement. Patient denies known trauma, injury, fever, chills, denies new weakness, sensory or vascular deficit to RIght hand. Ambulate to Ed for evaluation, not in any apparent distress. Time Seen by Provider: 05/05/18 11:37 Chief Complaint (Nursing): Finger,Hand,&Wrist History Per: Patient History/Exam Limitations: no limitations Onset/Duration Of Symptoms: Days (x1 week) Current Symptoms Are (Timing): Still Present Quality: "Pain" Exacerbating Factor(s): Movement Past Medical History Reviewed: Historical Data, Nursing Documentation, Vital Signs Vital Signs: Last Vital Signs Temp 98.0 F 05/05/18 11:33 Pulse 60 05/05/18 11:33 Resp 19 05/05/18 11:33 BP 175/64 H 05/05/18 11:33 Pulse Ox 100 05/05/18 11:33 - Medical History PMH: Cardia Arrhythmia, Diabetes, HTN, Hypercholesterolemia, Hypothyroidism Surgical History: Cholecystectomy - [facility] Procedures DILATE OF L COM ILIAC VEIN WITH INTRALUM DEV, PERC APPROACH (08/03/16) DILATION OF L FEMOR VEIN WITH INTRALUM DEV, PERC APPROACH (08/03/16) EXTIRPATION OF MATTER FROM L COM ILIAC VEIN, PERC APPROACH (08/03/16) EXTIRPATION OF MATTER FROM LEFT FEMORAL VEIN, PERC APPROACH (08/03/16) NASAL LACERATION SUTURE (06/05/14) TETANUS TOXOID ADMINIST (06/05/14) Family History: States: Unknown Family Hx - Social History Hx Tobacco Use: No Hx Alcohol Use: No Hx Substance Use: No - Immunization History Hx Tetanus Toxoid Vaccination: Yes Hx Influenza Vaccination: Yes Hx Pneumococcal Vaccination: Yes Review Of Systems Except As Marked, All Systems Reviewed And Found Negative. Constitutional: Negative for: Fever, Chills, Other (trauma/inujury on right 4th finger ) Musculoskeletal: Positive for: Hand Pain (R 4th finger localized pain with redness and swelling ) Skin: Negative for: Rash, Bruising Neurological: Negative for: Weakness, Numbness, Other (sensory vascular deficit on R 4th finger) Physical Exam - Physical Exam Appears: Well, Non-toxic, No Acute Distress Skin: Normal Color, Warm, Dry, No Rash, No Ecchymosis Head: Normacephalic Extremity: Normal ROM (FAROM of B/L UEs.), Tenderness (R 4th DIPJ with mild edema, erythema extended to R 4th distal phalangs. NO palpable defomrity, no proximal streaking, no flactulance.), Capillary Refill, No Deformity, Other (B/L hands arthritis with mild joints deformity noted.) Extremity: Bilateral: Atraumatic Pulses: Left Radial: Normal, Right Radial: Normal Neurological/Psych: Oriented x3, Normal Speech, Normal Motor, Normal Sensation, Normal Reflexes ED Course And Treatment O2 Sat by Pulse Oximetry: 100 (RA) Pulse Ox Interpretation: Normal - Other Rad Right 4th finger X-Ray: Interpreted by Me, Viewed By Me Interpretation: (+)DJD, no acute fx or dislocation Progress Note: Plans: -- XR right hand 4th finger. Reassess: On re-eval, pt is afebrile, hemodynamically stable. Non-toxic. PulseOx 100% on RA. Right hand: exam c/w Right 4th DIPJ mild tenderness with diffuse edema, erythema to Right 4th distal phalanx. NO proximal streaking, no flactualnce. FAROM, no neurovas cular deficits. Neurologically intact. Imaging review (+) mod DJD, no acute fx or dilsoctaion. FSBS 71. results review and discussed with pt. 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 Pt advised and ref. to f/u with PMD in 1-2 days for re-eval. return to Ed if any worsening or new changes. Disposition Counseled Patient/Family Regarding: Studies Performed, Diagnosis, Need For Followup, Rx Given - Disposition Referrals: Mg Catalan MD [Staff Provider] - Disposition: HOME/ ROUTINE Disposition Time: 12:34 Condition: STABLE Additional Instructions: Take medication as prescribed Follow up with PMD in 2-3 days for re-evaluation. return to ED at any time if any worsening or new changes. Prescriptions: Doxycycline Hyclate [Doryx] 100 mg PO BID #14 cap Prednisone [Deltasone] 40 mg PO DAILY #6 tablet Instructions: Joint Pain, Cellulitis (Skin Infection), Adult (DC) Forms: [employer] ([place]) - Clinical Impression Clinical Impression: Arthritis of finger, Cellulitis - PA / BISTRO SERVER / Resident Statement MD/ has reviewed & agrees with the documentation as recorded. - Scribe Statement The provider has reviewed the documentation as recorded by the Scribe Juanita Albarran All medical record entries made by the Scribe were at my direction and personally dictated by me. I have reviewed the chart and agree that the record accurately reflects my personal performance of the history, physical exam, medical decision making, and the department course for this patient. I have also personally directed, reviewed, and agree with the discharge instructions and disposition.
[2018-05-05 13:21] VITALS: BP 148/57; RESP 20; TEMP 98.9; O2SAT 96
--- NOTE | 2018-05-05 13:50 | RAD ---
PROCEDURE: Right Hand 4 digit radiographs. Three views HISTORY: injury COMPARISON: None. FINDINGS: BONES: Diffuse osteopenia. JOINTS: Narrowing of the 2nd through 5th PIP and DIP joint spaces. On the lateral view, some bony spurring noted at the dorsal aspect of the 4th distal phalanx. SOFT TISSUES: Soft tissue swelling at the level of the 4th digit. OTHER FINDINGS: None. IMPRESSION: Narrowing of the 2nd through 5th PIP and DIP joint spaces. On the lateral view, some bony spurring noted at the dorsal aspect of the 4th distal phalanx. If pain persists, consider correlation with MRI.
== END 2018-05-05 13:39 | disposition home or self-care (01) ==
LOC: C.ER 11:26
DX: M13.841 Other specified arthritis, right hand (principal); L03.011 Cellulitis of right finger